=== PATIENT | female | born 1995 | race African-American/Black ===

== ENCOUNTER 2019-11-05 14:43 | Emergency (ER) | payer OTHER, SELFPAY ==
[2019-11-05 14:53] VITALS: BP 119/70; PULSE 83; RESP 16; TEMP 36.8; O2SAT 98; BMI 20.7
--- NOTE | 2019-11-05 15:19 | DI.US.S_ITS ---
PROCEDURE: US ABDOMEN LIMITED INDICATIONS: EPIGASTRIC , RLQ PAIN TECHNIQUE: Real-time scanning was performed of the abdominal and retroperitoneal organs, with image documentation. COMPARISON: None. FINDINGS: Liver: Liver is normal in size and homogeneous in echotexture. Gallbladder: The gallbladder wall measures 2.0 mm in diameter. No stones, sludge, pericholecystic fluid, or sonographic Maher sign. Biliary ducts: Intrahepatic bile ducts are non-dilated. Extrahepatic bile duct caliber measures 3.8 mm. Normal is 6-7 mm or less in diameter, or 10 mm or less post-cholecystectomy. Pancreas: The pancreas was not visualized due to bowel gas. Kidneys: The right kidney measures 11.3 cm in length. No hydronephrosis. Miscellaneous: The appendix is nonvisualized. Line and intrauterine gestation is visualized with a heart rate of 171 BPM. IMPRESSION: 1. No cholelithiasis or findings to suggest choledocholithiasis or acute cholecystitis. 2. Limited characterization of a live intrauterine gestation with a heart rate of 171 beats per minute. 3. The appendix is nonvisualized. Acute appendicitis cannot be excluded. Dictated by: Maria De Jesus London M.D. on 11/05/2019 at 14:47 Approved by: Maria De Jesus London M.D. on 11/05/2019 at 14:49
--- NOTE | 2019-11-05 15:28 | ED_ITS ---
HPI - <HOWARD Carver - Last Filed: 11/05/19 22:08> General Chief complaint: OB/Uterine Contractions Stated complaint: cramps and spotting- 10 wks preg Time Seen by Provider: 11/05/19 14:57 Source: patient Mode of arrival: Ambulatory Limitations: no limitations History of Present Illness HPI Narrative: This is a 25-year-old female, nonsmoker, who has history of type 1 diabetes, presents to ED with her young son with chief complaint of abdominal cramping pain, nausea, throbbing headache, dizziness, increased urination, vaginal spotting. Patient reports vaginal spotting last week and recurring this morning. LMP 08/22/2019 and about 10 wk EGA with spont AB1 1 year ago. Patient was initially evaluated at [facility] 2 weeks ago for initial OB appointment and is waiting to be seen by OB specialist for high risk in [facility]. Patient reports chills but no fever. Patient denies urinary symptoms or recent illness. Patient reports history of DKA from diabetes complication in the past. Date of Last Menstrual Period: 08/22/19 Patient : Yes Expected Date of Delivery: 05/28/20 Related Data Previous Rx's Medication Instructions Recorded ondansetron 4 mg PO Q6-8H PRN #10 tab 11/05/19 penicillin V potassium 500 mg PO Q6H 7 Days #28 tab 11/05/19 Allergies Allergy/AdvReac Type Severity Reaction Status Date / Time No Known Drug Allergies Allergy Verified 11/05/19 16:09 Review of Systems <HOWARD Carver - Last Filed: 11/05/19 22:08> Review of Systems Narrative: General: Denies fever, chills, fatigue, malaise, sweats. HEENT: Denies sinus pain, ear pain, sore throat, difficulty swallowing, dizziness. Respiratory: Denies dyspnea, cough, wheezing, hemoptysis, sputum. Cardiovascular: Denies chest pain, palpitations, orthopnea, edema. Gastrointestinal: See HPI : See HPI Musculoskeletal: Denies weakness, joint pain or bony pain. Skin: Denies rash, skin lesions, or other. Neurologic: Reports headache. Denies weakness, numbness, change in speech, confusion, seizures, incoordination. Psychiatric: No concerning psychosocial issues. 12-point review of systems is negative except for those stated above. 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 Head: Normal cephalic, atraumatic. No scalp or temporal tenderness, palpable mass or rash. EYES: Pupils are equal, round, and reactive to light and accommodation. Extraocular muscles are intact bilaterally. There is no subconjunctival hemorrhage, exudate and sclera non-icteric. ENT: Bilateral auditory canals and tympanic membranes clear. Hearing grossly intact. Nose without bleeding, purulent discharge or deviation. Facial sinuses nontender to palpate. Mucous membrane moist, no mucosal lesion. Throat without erythema, tonsillar hypertrophy or exudate. Uvula in midline, airway patent. Neck: Trachea in midline. No JVD, non-tender without lymphadenopathy. No masses or thyroid megaly. Supple, non-tender and no meningeal signs. CARDIAC: Normal regular rate and rhythm without murmurs, gallops, or rubs. No chest wall tenderness. No peripheral edema, cyanosis or pallor. Capillary refill is less than 2 seconds. RESPIRATORY: Lungs are clear to auscultate bilaterally. No cough, wheezes, rales, or rhonchi. No stridor, respiratory distress, increase work of breathing, or accessary muscle used. ABD: Very tender to palpate in right lower quadrant and epigastric region with rebound tenderness. Abdomen soft and non-distended. No guarding. Bowel sounds are normal in all 4 quadrants. There is no palpable masses or organomegaly. EXT: Full painless ROM of all extremities with no loss of sensation, strength, effusion or edema. SKIN: Warm, dry, normal color for patient. No erythema, lesions or rash over visible areas. BACK: Nontender without deformity or crepitance. No flank tenderness. NEUROLOGICAL: Alert and oriented to place, time and person. Sensation and motor function intact bilaterally. No facial droops, dysphasia. PSYCHIATRIC: Good judgement and reason, without hallucinations, abnormal affect or abnormal behaviors during the examination. Patient is not suicidal. Initial Vital Signs Initial Vital Signs: Vital Signs Temperature 98.3 F 11/05/19 14:53 Pulse Rate 83 11/05/19 14:53 Respiratory Rate 16 11/05/19 14:53 Blood Pressure 119/70 11/05/19 14:53 Pulse Oximetry 98 11/05/19 14:53 <Tyra Cavazos DO - Last Filed: 11/06/19 08:09> Initial Vital Signs Initial Vital Signs: Vital Signs Temperature 98.3 F 11/05/19 14:53 Pulse Rate 83 11/05/19 14:53 Respiratory Rate 16 11/05/19 14:53 Blood Pressure 119/70 11/05/19 14:53 Pulse Oximetry 98 11/05/19 14:53 GENERAL: Well-appearing, well-nourished and in no acute distress. CARDIOVASCULAR: peripheral pulses in tact, cap refill <2 sec RESPIRATORY: No respiratory distress, speaks in full sentences without difficulty ABDOMEN: Tender in right lower quadrant with mild guarding, no real suprapubic tenderness no left lower quadrant tenderness no right upper quadrant tenderness negative Maher sign EXTREMITIES: Normal range of motion, no clubbing or edema. Neurovascularly intact NEUROLOGICAL: Cranial nerves II through XII grossly intact. Normal gait and speech. SKIN: Warm, dry, no petechiae, no rashes or lesions. Scores <HOWARD Carver - Last Filed: 11/05/19 22:08> GCS Norberto coma scale eye opening: Spontaneous Norberto coma scale verbal response: Orientated Norberto coma scale motor response: Obey commands [place] coma scale total score: 15 Course <HOWARD Carver - Last Filed: 11/05/19 22:08> Orders Ordered: Discontinued Medications Acetaminophen (Tylenol) 650 mg PO NOW ONE Stop: 11/05/19 15:21 Last Admin: 11/05/19 16:10 Dose: 650 mg Documented by: ROBERT Sodium Chloride (Normal Saline 0.9%) 1,000 mls @ 1,000 mls/hr IV BOLUS ONE Stop: 11/05/19 16:19 Last Infusion: 11/05/19 17:34 Dose: 0 mls/hr Documented by: Admin: 11/05/19 16:10 Dose: 1,000 mls/hr Documented by: ROBERT Piperacillin/Tazobactam/Dextrose (Zosyn) 3.375 gm in 50 mls @ 100 mls/hr IV NOW ONE Stop: 11/05/19 17:26 Last Infusion: 11/05/19 17:34 Dose: 0 mls/hr Documented by: Admin: 11/05/19 17:14 Dose: 100 mls/hr Documented by: ROBERT Ondansetron HCl (Zofran) 4 mg IV NOW ONE Stop: 11/05/19 15:21 Last Admin: 11/05/19 16:10 Dose: 4 mg Documented by: ROBERT Reevaluation(s) Reevaluation #1: Reports pain moderately decreased. Improved RLQ pain with palpation, mild rebound tenderness. The patient reports right lower tooth aches which is causing her headache. Reports she hasn't seen dentist for 17 years. Right lower molar with partial dental decay with erythema to the gum. Time: 16:45 Consultations Consultation #1: Dr. Cho for RLQ pain to r/o appy. Plan admit today with IV abx medication , Zosyn, and MRI plan tomorrow. Pt states won't be staying over night since there's no child care counselor who has ADHD and spouse currently deployed. Stating pain improved and will be back tomorrow. Time: 16:40 Vital Signs Vital signs: Vital Signs - 8 hr 11/05/19 14:53 11/05/19 16:17 11/05/19 17:30 Temperature 98.3 F Pulse Rate 83 68 77 Respiratory Rate 16 14 20 Blood Pressure 119/70 Blood Pressure [Left Arm] 120/67 122/68 Pulse Oximetry 98 100 99 <Tyra Cavazos, - Last Filed: 11/06/19 08:09> Orders Ordered: Discontinued Medications Acetaminophen (Tylenol) 650 mg PO NOW ONE Stop: 11/05/19 15:21 Last Admin: 11/05/19 16:10 Dose: 650 mg Documented by: ROBERT Sodium Chloride (Normal Saline 0.9%) 1,000 mls @ 1,000 mls/hr IV BOLUS ONE Stop: 11/05/19 16:19 Last Infusion: 11/05/19 17:34 Dose: 0 mls/hr Documented by: Admin: 11/05/19 16:10 Dose: 1,000 mls/hr Documented by: ROBERT Piperacillin/Tazobactam/Dextrose (Zosyn) 3.375 gm in 50 mls @ 100 mls/hr IV NOW ONE Stop: 11/05/19 17:26 Last Infusion: 11/05/19 17:34 Dose: 0 mls/hr Documented by: Admin: 11/05/19 17:14 Dose: 100 mls/hr Documented by: ROBERT Ondansetron HCl (Zofran) 4 mg IV NOW ONE Stop: 11/05/19 15:21 Last Admin: 11/05/19 16:10 Dose: 4 mg Documented by: ROBERT Vital Signs Vital signs: Vital Signs - 8 hr 11/05/19 14:53 11/05/19 16:17 11/05/19 17:30 Temperature 98.3 F Pulse Rate 83 68 77 Respiratory Rate 16 14 20 Blood Pressure 119/70 Blood Pressure [Left Arm] 120/67 122/68 Pulse Oximetry 98 100 99 MDM - OB/Uterine Contractions <Kumar Sacha-HOWARD Kelly - Last Filed: 11/05/19 22:08> Differential Diagnosis Differential diagnosis: Likely other (Threatened , DKA, appendicitis, ovarian cyst, pancreatitis) Medical Records Attestation: I reviewed the patient's medical records. Lab Data Attestation: I reviewed the patient's lab results. Result diagrams: 11/05/19 15:58 11/05/19 15:58 Labs: Lab Results 11/05/19 11/05/19 11/05/19 Range/Units 15:58 15:58 15:58 WBC 6.4 (4.5-11.0) X10^3/uL RBC 4.46 (4.0-5.2) X10^6/uL Hgb 12.4 (12.0-16.0) g/dL Hct 36.7 (36-46) % MCV 82.3 (80-100) fL MCH 27.9 (26-34) PG MCHC 33.8 (30-36) % RDW 15.0 H (11.6-14.8) % Plt Count 290 (150-400) X10^3/uL Neut % (Auto) 51.8 (50-75) % Lymph % (Auto) 39.5 (25-40) % Hopkins % (Auto) 7.4 (3-14) % Eos % (Auto) 0.8 L (2-4) % Baso % (Auto) 0.5 (0-2) % Neut # (Auto) 3300 (3229-3772) /uL Lymph # (Auto) 2500 (1170-0617) /uL Hopkins # (Auto) 500 (0-900) /uL Eos # (Auto) 100 (0-450) /uL Baso # (Auto) 0 (0-100) /uL Sodium 130 L (137-145) mmol/L Potassium 4.0 (3.4-5.1) mmol/L Chloride 96 L (98-107) mmol/L Carbon Dioxide 25 (22-32) mmol/L BUN 11 (7-17) mg/dL Creatinine 0.40 L (0.52-1.04) mg/dL Estimated GFR > 60.0 (>60) mL/min BUN/Creatinine Ratio 27.5 H (6-22) Glucose 349 H (70-100) mg/dL Calcium 9.0 (8.4-10.2) mg/dL Total Bilirubin 0.2 (0.2-1.3) mg/dL AST 18 (14-36) IU/L ALT 9 (<35) IU/L Alkaline Phosphatase 66 (38-126) U/L Total Protein 6.8 (6.3-8.2) g/dL Albumin 3.9 (3.5-5.0) g/dL Globulin 2.9 (1.7-4.1) g/dL Albumin/Globulin Ratio 1.3 (1.0-2.8) Lipase (23-300) U/L Procalcitonin (<0.5) ng/mL HCG, Quant 649466 mIU/mL Ketones (<0.27) mmol/L Blood Type B Positive 11/05/19 11/05/19 Range/Units 15:58 15:58 WBC (4.5-11.0) X10^3/uL RBC (4.0-5.2) X10^6/uL Hgb (12.0-16.0) g/dL Hct (36-46) % MCV (80-100) fL MCH (26-34) PG MCHC (30-36) % RDW (11.6-14.8) % Plt Count (150-400) X10^3/uL Neut % (Auto) (50-75) % Lymph % (Auto) (25-40) % Hopkins % (Auto) (3-14) % Eos % (Auto) (2-4) % Baso % (Auto) (0-2) % Neut # (Auto) (0365-7640) /uL Lymph # (Auto) (2135-3247) /uL Hopkins # (Auto) (0-900) /uL Eos # (Auto) (0-450) /uL Baso # (Auto) (0-100) /uL Sodium (137-145) mmol/L Potassium (3.4-5.1) mmol/L Chloride (98-107) mmol/L Carbon Dioxide (22-32) mmol/L BUN (7-17) mg/dL Creatinine (0.52-1.04) mg/dL Estimated GFR (>60) mL/min BUN/Creatinine Ratio (6-22) Glucose (70-100) mg/dL Calcium (8.4-10.2) mg/dL Total Bilirubin (0.2-1.3) mg/dL AST (14-36) IU/L ALT (<35) IU/L Alkaline Phosphatase (38-126) U/L Total Protein (6.3-8.2) g/dL Albumin (3.5-5.0) g/dL Globulin (1.7-4.1) g/dL Albumin/Globulin Ratio (1.0-2.8) Lipase 150 (23-300) U/L Procalcitonin < 0.05 (<0.5) ng/mL HCG, Quant mIU/mL Ketones 0.11 (<0.27) mmol/L Blood Type Point of Care Testing Test Results Positive Urine Dip Bedside Urine Glucose 2000+ mg/dl Bedside Urine Bilirubin - Negative Bedside Urine Ketone - Negative Urine Specific [place] 1.010 Bedside Urine Occult Blood - Negative Bedside Urine pH 6.5 Bedside Urine Protein - Negative Bedside Urine Urobilinogen - Negative Bedside Urine Nitrite - Negative Bedside Urine Leukocytes - Negative Esterase Imaging Data US-Abdomen Limited: Radiologist's impression: [address] [address] Ultrasound Report Signed Patient: Easton Ross#: [id number] : 1995Acct:[id number] Age/Sex: 24 / FDate of Service: 11/05/19 Loc: ED Accession Number: [id number] Procedure: US abdomen limited Ordering Provider: Kumar Wan PROCEDURE: US ABDOMEN LIMITED INDICATIONS: EPIGASTRIC , RLQ PAIN TECHNIQUE: Real-time scanning was performed of the abdominal and retroperitoneal organs, with image documentation. COMPARISON: None. FINDINGS: Liver: Liver is normal in size and homogeneous in echotexture. Gallbladder: The gallbladder wall measures 2.0 mm in diameter. No stones, sludge, pericholecystic fluid, or sonographic Maher sign. Biliary ducts: Intrahepatic bile ducts are non-dilated. Extrahepatic bile duct caliber measures 3.8 mm. Normal is 6-7 mm or less in diameter, or 10 mm or less post-cholecystectomy. Pancreas: The pancreas was not visualized due to bowel gas. Kidneys: The right kidney measures 11.3 cm in length. No hydronephrosis. Miscellaneous: The appendix is nonvisualized. Line and intrauterine gestation is visualized with a heart rate of 171 BPM. IMPRESSION: 1. No cholelithiasis or findings to suggest choledocholithiasis or acute cholecystitis. 2. Limited characterization of a live intrauterine gestation with a heart rate of 171 beats per minute. 3. The appendix is nonvisualized. Acute appendicitis cannot be excluded. Dictated by: Maria De Jesus London M.D. on 11/05/2019 at 14:47 Approved by: Maria De Jesus London M.D. on 11/05/2019 at 14:49 [facility] Narrative Medical decision making narrative: This is a 24 year female who has history of diabetes type 1 and DKA presents to ED with abdominal cramping, RLQ pain, nausea, throbbing headache, dizziness, increased urination and vaginal spotting. Patient is about 10 week EGA with with 1 spontaneous AB about an year ago. Patient was evaluated at [facility] 2 weeks ago for her and is waiting to be evaluated with OB specialist in [place] for high risk . Ultrasound on abdomen was obtained rule out miscarriage, appendicitis, ruptured ovary or torsion. Ultrasound test showed IUP and FTH of 171 bmp, normal pancreas, no cholelithiasis. Appendix and pancreas was not visualized. CBC without leukocytosis. Normal procalcitonin. Chemistry showed elevated blood glucose of 349 (reports usual BG around in 200's) with mildly decreased Na (130) and Cl (96) with normal ketones. Hcg quant test 109,210 today. Urine test does not indicate infection. Patient was medicated with Tylenol 1000 mg and IV Zofran and normal saline hydration. Given patient's normal ketones, DKA is unlikely. Since US was not able to visualize appendix effectively, MRI was considered but it is unavailable today here. Dr. Cho, Gen-surgeon, was consulted and suggested to admit patient for observation for MRI test tomorrow with IV hydration and antibiotic medication treatment. I discussed this with the patient and patient states can't stay in the hospital due to her spouse is currently deployed and there is no child care counselor available at this time. Patient states her abdominal pain has improved significantly. Patient is strongly suggested to stay in the hospital but states she will leave against medical advice. Patient instructed to stay to receive at least 1 dose of IV antibiotic medication of Zosyn. Patient complain of dental pain which is causing severe headache which is the patient's main concern at that time. Moderate dental decay with inflammation in the gum appreciated in right lower molar. Patient advised to follow up with dentist and informed that will Rx PCN for dental infection treatment. Patient states as long as the fetus' well-being is verified, she is ready to go home. Informed the patient she is welcome to return to ED any time for further evaluation although MRI is not a scheduled appointment and has be be ordered when she returns to ED with on-going RLQ pain. Patient verbalized understanding and while her discharge instructions being generated she rushed to leave the ED and signed out the AMA. She is alert and oriented and has a full capacity to make sound medical judgment at the time. Patient's discharge instruction and prescriptions for penicillin will be mailed to her house. <Tyra Cavazos, - Last Filed: 11/06/19 08:09> Lab Data Labs: Lab Results 11/05/19 11/05/19 11/05/19 Range/Units 15:58 15:58 15:58 WBC 6.4 (4.5-11.0) X10^3/uL RBC 4.46 (4.0-5.2) X10^6/uL Hgb 12.4 (12.0-16.0) g/dL Hct 36.7 (36-46) % MCV 82.3 (80-100) fL MCH 27.9 (26-34) PG MCHC 33.8 (30-36) % RDW 15.0 H (11.6-14.8) % Plt Count 290 (150-400) X10^3/uL Neut % (Auto) 51.8 (50-75) % Lymph % (Auto) 39.5 (25-40) % Hopkins % (Auto) 7.4 (3-14) % Eos % (Auto) 0.8 L (2-4) % Baso % (Auto) 0.5 (0-2) % Neut # (Auto) 3300 (9258-5066) /uL Lymph # (Auto) 2500 (9736-3065) /uL Hopkins # (Auto) 500 (0-900) /uL Eos # (Auto) 100 (0-450) /uL Baso # (Auto) 0 (0-100) /uL Sodium 130 L (137-145) mmol/L Potassium 4.0 (3.4-5.1) mmol/L Chloride 96 L (98-107) mmol/L Carbon Dioxide 25 (22-32) mmol/L BUN 11 (7-17) mg/dL Creatinine 0.40 L (0.52-1.04) mg/dL Estimated GFR > 60.0 (>60) mL/min BUN/Creatinine Ratio 27.5 H (6-22) Glucose 349 H (70-100) mg/dL Calcium 9.0 (8.4-10.2) mg/dL Total Bilirubin 0.2 (0.2-1.3) mg/dL AST 18 (14-36) IU/L ALT 9 (<35) IU/L Alkaline Phosphatase 66 (38-126) U/L Total Protein 6.8 (6.3-8.2) g/dL Albumin 3.9 (3.5-5.0) g/dL Globulin 2.9 (1.7-4.1) g/dL Albumin/Globulin Ratio 1.3 (1.0-2.8) Lipase (23-300) U/L Procalcitonin (<0.5) ng/mL HCG, Quant 827418 mIU/mL Ketones (<0.27) mmol/L Blood Type B Positive 11/05/19 11/05/19 Range/Units 15:58 15:58 WBC (4.5-11.0) X10^3/uL RBC (4.0-5.2) X10^6/uL Hgb (12.0-16.0) g/dL Hct (36-46) % MCV (80-100) fL MCH (26-34) PG MCHC (30-36) % RDW (11.6-14.8) % Plt Count (150-400) X10^3/uL Neut % (Auto) (50-75) % Lymph % (Auto) (25-40) % Hopkins % (Auto) (3-14) % Eos % (Auto) (2-4) % Baso % (Auto) (0-2) % Neut # (Auto) (7011-6750) /uL Lymph # (Auto) (8332-8464) /uL Hopkins # (Auto) (0-900) /uL Eos # (Auto) (0-450) /uL Baso # (Auto) (0-100) /uL Sodium (137-145) mmol/L Potassium (3.4-5.1) mmol/L Chloride (98-107) mmol/L Carbon Dioxide (22-32) mmol/L BUN (7-17) mg/dL Creatinine (0.52-1.04) mg/dL Estimated GFR (>60) mL/min BUN/Creatinine Ratio (6-22) Glucose (70-100) mg/dL Calcium (8.4-10.2) mg/dL Total Bilirubin (0.2-1.3) mg/dL AST (14-36) IU/L ALT (<35) IU/L Alkaline Phosphatase (38-126) U/L Total Protein (6.3-8.2) g/dL Albumin (3.5-5.0) g/dL Globulin (1.7-4.1) g/dL Albumin/Globulin Ratio (1.0-2.8) Lipase 150 (23-300) U/L Procalcitonin < 0.05 (<0.5) ng/mL HCG, Quant mIU/mL Ketones 0.11 (<0.27) mmol/L Blood Type Point of Care Testing Test Results Positive Urine Dip Bedside Urine Glucose 2000+ mg/dl Bedside Urine Bilirubin - Negative Bedside Urine Ketone - Negative Urine Specific [place] 1.010 Bedside Urine Occult Blood - Negative Bedside Urine pH 6.5 Bedside Urine Protein - Negative Bedside Urine Urobilinogen - Negative Bedside Urine Nitrite - Negative Bedside Urine Leukocytes - Negative Esterase Discharge Plan Departure Patient Disposition: Left Against Medical Advice Clinical Impression: Right lower quadrant abdominal pain, Threatened in first trimester, Pain, dental, Hyperglycemia Discharge Date/Time: 11/05/19 17:35 Instructions: DI for Threatened , DI for Abdominal Pain-Adult, DI for Tooth Decay, DI for Hyperglycemia -- Adult Activity Restrictions/Additional Instructions: You have been diagnosed with [right lower quadrant pain, threatened , dental pain, nausea, elevated blood sugar. He had elevated blood sugars and 300s but does not appears to be in DKA. You were hydrated with IV fluid. Please use your insulin as instructed by her doctor. Ultrasound test today shows good heart tone but was unable to evaluate appendicitis and arrange has been made to stay in the hospital overnight with IV antibiotic medication and MRI test tomorrow which you declined against medical advice. You're offer for IV antibiotic medication but this has been declined as well.]. What to do: *Take your medications as directed. Penicillin has been ordered for dental pain likely from dental caries. Please seek evaluation and treatment for dental caries. Take Zofran as needed for nausea and to hydrate herself adequately. You can take [id number] Tylenol as needed for discomfort and up to 4000 mg in 24 hour. *Follow up with your primary care provider in 2-3 days, call for an appointment. Let them know you were seen in the ED and that we asked you to be seen in follow up. *Return to ED if you have any new, worsening, or concerning symptoms, such as chest pain, breathing difficulty, vaginal bleeding, unable to tolerate fluids or medication, fever, abdominal pain, or any acute concerns. MRI test is still suggested to rule out appendicitis. You're welcome to return to ED any time for further evaluation. Prescriptions: New penicillin V potassium 500 mg tablet 500 mg PO Q6H 7 Days Qty: 28 RF: 0 ondansetron 4 mg tablet,disintegrating 4 mg PO Q6-8H PRN (Reason: nausea and vomiting) Qty: 10 RF: 0 Referrals: [facility] [Outside] Stand Alone Forms: Against Medical Advice
[2019-11-05] MEDS: ONDANSETRON 4 MG/2 ML INJ IV (16:10)
[2019-11-05] MEDS: ACETAMINOPHEN 325 MG TABLET 650 MG PO (16:10)
[2019-11-05] MEDS: SODIUM CHLORIDE 0.9% 1,000 ML 1000 ML IV (16:10)
[2019-11-05 16:14] LABS: Add Manual Diff / Slide Review NO; Basophils Absolute Auto 0 /uL (0-100); Basophils Percent Auto 0.5 % (0-2); Eosinophils Absolute Auto 100 /uL (0-450); Eosinophils Percent Auto 0.8 % (2-4); Hematocrit 36.7 % (36-46); Hemoglobin 12.4 g/dL (12.0-16.0); Lymphocytes Absolute Auto 2500 /uL (1100-4500); Lymphocytes Percent Auto 39.5 % (25-40); Mean Corpuscular HGB Conc 33.8 % (30-36); Mean Corpuscular Hemoglobin 27.9 PG (26-34); Mean Corpuscular Volume 82.3 fL (80-100); Monocytes Absolute Auto 500 /uL (0-900); Monocytes Percent Auto 7.4 % (3-14); Neutrophils Absolute Auto 3300 /uL (1500-7000); Neutrophils Percent Auto 51.8 % (50-75); Platelet Count 290 X10^3/uL (150-400); Red Blood Cell Count 4.46 X10^6/uL (4.0-5.2); White Blood Cell Count 6.4 X10^3/uL (4.5-11.0)
[2019-11-05 16:17] VITALS: BP 120/67; PULSE 68; RESP 14; O2SAT 100
[2019-11-05 16:20] LABS: Lipase 150 U/L (23-300)
[2019-11-05 16:21] LABS: Alanine Aminotransferase 9 IU/L (<35); Albumin 3.9 g/dL (3.5-5.0); Albumin Globulin Ratio 1.3 (1.0-2.8); Alkaline Phosphatase 66 U/L (38-126); Aspartate Aminotransferase 18 IU/L (14-36); BUN Creatinine Ratio 27.5 (6-22); Bilirubin Total 0.2 mg/dL (0.2-1.3); Blood Urea Nitrogen 11 mg/dL (7-17); Carbon Dioxide 25 mmol/L (22-32); Chloride 96 mmol/L (98-107); Estimated Glomerular Filt Rate > 60.0 mL/min (>60); Globulin 2.9 g/dL (1.7-4.1); Glucose 349 mg/dL (70-100); HEMOLYSIS < 15 (0-50); Sodium 130 mmol/L (137-145); Total Protein 6.8 g/dL (6.3-8.2)
[2019-11-05 16:23] LABS: Ketones (Beta-Hydroxybutyrate) 0.11 mmol/L (<0.27)
[2019-11-05 17:03] LABS: HCG Quantitative /Beta subunit 109210 mIU/mL; Procalcitonin < 0.05 ng/mL (<0.5)
[2019-11-05] MEDS: PIPERACILLIN-TAZO 3.375 GM/50 ML FROZ.PIGGY IV (17:14)
[2019-11-05 17:30] VITALS: BP 122/68; PULSE 77; RESP 20; O2SAT 99
--- NOTE | 2019-11-05 17:38 | PC.NURSE ---
pt wanted to leave AMA after her antibiotics. during the antibiotic infusion, she called and wanted to leave AMA before the antibiotics. Dr. Cavazos aware. explained the importance of staying and pt still said she wanted to leave.
== END 2019-11-05 17:35 | disposition left against medical advice (07) ==
PROVIDERS: Emergency Provider Nurse Practitioner Family
DX: O20.0 Threatened abortion (principal); Z3A.10 10 weeks gestation of pregnancy; R10.31 Right lower quadrant pain; K08.89 Other specified disorders of teeth and supporting structures; E10.65 Type 1 diabetes mellitus with hyperglycemia; Z79.4 Long term (current) use of insulin
CPT/HCPCS: 36415; 76705; 80053; 81003; 81025; 82009; 83690; 84145; 84702; 85025; 86900; 86901; 96361; 96365; 96375; 99284; J2405; J2543